=== PATIENT | female | born 1990 | race Caucasian/White ===

== ENCOUNTER 2017-12-26 19:49 | Emergency (ER) | payer OTHER ==
--- NOTE | 2017-12-26 20:07 | PDOC ---
Rapid Medical Evaluation Time Seen by Provider: 12/26/17 20:03 Medical Evaluation: Allergies Allergy/AdvReac Type Severity Reaction Status Date / Time kiwi Allergy Severe swelling Verified 04/29/16 06:33 of tongue No Known Drug Allergies Allergy Unknown Verified 04/29/16 06:33 coconut Allergy Severe n/v-itching Uncoded 04/29/16 06:33 12/26/17 20:04 I have performed a brief in-person person evaluation of the patient. The patient presents with a chief complaint of flu-like symptoms x 2 weeks, non with non productive coughing that causes chest, mid back coughing and headache. Took dayquil and using albuterol pump. Denies fever or chills. Pertinent physical exam findings: NAD Lungs clear bilaterally heart s1s2 I have ordered the following: urine hcg The patient will proceed to the ED for further evaluation.
[2017-12-26 20:10] VITALS: BP 134/83; PULSE 84; TEMP 98.4; BMI 16.9
--- NOTE | 2017-12-26 21:26 | PDOC ---
History of Present Illness - General Chief Complaint: Cold Symptoms Stated Complaint: COUGHING Time Seen by Provider: 12/26/17 20:03 History Source: Patient Exam Limitations: No Limitations - History of Present Illness Initial Comments: 12/26/17 21:24 Best Contact: Pmhx:Asthma Pshx:N/A Allergies:NKDA 27 year old female presents to the emergency department complaining of body ache , frontal headache, dehydration, nonproductive cough 9 days. Patient states all her symptoms have subsided except for the nonproductive cough. Patient denies fever, headache, nausea/vomiting/diarrhea, headache, dizziness, lightheadedness, facial pains, rhinorrhea, earache, sore throat, chest pains, abdominal discomfort, urinary symptoms. Patient denies hitting anyone or taking anything for her cough. Past History - Past Medical History Allergies/Adverse Reactions: Allergies Allergy/AdvReac Type Severity Reaction Status Date / Time kiwi Allergy Severe swelling Verified 12/26/17 20:05 of tongue No Known Drug Allergies Allergy Unknown Verified 12/26/17 20:05 coconut Allergy Severe n/v-itching Uncoded 04/29/16 06:33 Home Medications: Ambulatory Orders Albuterol Sulfate Inhaler - [Ventolin Hfa Inhaler -] 1 - 2 inh PO QID 04/29/16 Anemia: No Asthma: Yes Cancer: No Cardiac Disorders: No CVA: No COPD: No CHF: No Dementia: No Diabetes: No GI Disorders: No Disorders: No HTN: No Hypercholesterolemia: No Liver Disease: No Seizures: No Thyroid Disease: No - Surgical History Abdominal Surgery: No Appendectomy: No Cardiac Surgery: No Cholecystectomy: No Lung Surgery: No Neurologic Surgery: No Orthopedic Surgery: No - Suicide/Smoking/Psychosocial Hx Smoking Status: No Smoking History: Never smoked Have you smoked in the past 12 months: No Number of Cigarettes Smoked Daily: 0 Information on smoking cessation initiated: No Hx Alcohol Use: No Drug/Substance Use Hx: No Substance Use Type: None Hx Substance Use Treatment: No Review of Systems - Review of Systems Able to Perform ROS?: Yes Comments:: 12/26/17 21:23 CONSTITUTIONAL: Absent: fever, chills, diaphoresis, generalized weakness, malaise, loss of appetite HEENT: Absent: rhinorrhea, nasal congestion, throat pain, throat swelling, difficulty swallowing, mouth swelling, ear pain, eye pain, visual Changes CARDIOVASCULAR: Absent: chest pain, loss of consciousness, palpitations, irregular heart rate, peripheral edema RESPIRATORY: +cough Absent: shortness of breath, dyspnea with exertion, orthopnea, wheezing, stridor , hemoptysis GASTROINTESTINAL: Absent: abdominal pain, abdominal distension, nausea, vomiting, diarrhea, constipation, melena, hematochezia GENITOURINARY: Absent: dysuria, frequency, urgency, hesitancy, hematuria, flank pain, genital pain MUSCULOSKELETAL: Absent: myalgia, arthralgia, joint swelling SKIN: Absent: rash, itching, pallor Is the patient limited Ukrainian proficient: No *Physical Exam - Vital Signs Last Vital Signs Temp Pulse Resp BP Pulse Ox 98.4 F 84 18 134/83 98 12/26/17 20:06 12/26/17 20:06 12/26/17 20:06 12/26/17 20:06 12/26/17 20:06 - Physical Exam Comments: 12/26/17 21:23 GENERAL: Well developed, well nourished. Awake and alert. No acute distress. HEENT: Normocephalic, atraumatic. PERRLA, EOMI. No conjunctival pallor. Sclera are non- icteric. Moist mucous membranes. Oropharynx is clear. NECK: Supple. Full ROM. No JVD. Carotid pulses 2+ and symmetric, without bruits. No thyromegaly. No lymphadenopathy. CARDIOVASCULAR: Regular rate and rhythm. No murmurs, rubs, or gallops. Distal pulses are 2+ and symmetric. PULMONARY: No evidence of respiratory distress. Lungs clear to auscultation bilaterally. No wheezing, rales or rhonchi. ABDOMINAL: Soft. Non-tender. Non-distended. No rebound or guarding. No organomegaly. Normoactive bowel sounds. MUSCULOSKELETAL Normal range of motion at all joints. No bony deformities or tenderness. No CVA tenderness. EXTREMITIES: No cyanosis. No clubbing. No edema. No calf tenderness. SKIN: Warm and dry. Normal capillary refill. No rashes. No jaundice. NEUROLOGICAL: Alert, awake, appropriate. Cranial nerves 2-12 intact. No deficits to light touch and temperature in face, upper extremities and lower extremities. No motor deficits in the in face, upper extremities and lower extremities. Normoreflexic in the upper and lower extremities. Normal speech. Toes are down- going bilaterally. Gait is normal without ataxia. PSYCHIATRIC: Cooperative. Good eye contact. Appropriate mood and affect. ED Treatment Course - ADDITIONAL ORDERS Additional order review: Laboratory Results 12/26/17 20:42 Urine HCG, Qual Negative *DC/Admit/Observation/Transfer Diagnosis at time of Disposition: Acute bronchitis Qualifiers: Bronchitis organism: unspecified organism Qualified Code(s): J20.9 - Acute bronchitis, unspecified - Discharge Dispostion Disposition: HOME Condition at time of disposition: Stable Admit: No - Referrals Referrals: Zay Hernandez MD [Primary Care Provider] - - Patient Instructions Printed Discharge Instructions: DI for Acute Bronchitis Additional Instructions: Increase fluids Take [id number] supportive care such as Mucinex or Robitussin for your cough Follow-up with your PMD within 48 hours Take the antibiotics as prescribed/Z-Jeffery Return back to the emergency department for severe/persistent or worsening symptoms Your urine results today shows that you are not - Post Discharge Activity
== END 2017-12-26 21:30 | disposition home or self-care (01) ==
LOC: JERFT 19:49
DX: I20.9 Angina pectoris, unspecified (principal)
CPT/HCPCS: 84703; 99281-25

== ENCOUNTER 2019-06-20 02:31 | Emergency (ER) | payer OTHER ==
--- NOTE | 2019-06-20 02:42 | PDOC ---
History of Present Illness - General History Source: Patient Exam Limitations: No Limitations - History of Present Illness Initial Comments: Pt is a 28 yo F, with PMH of asthma, who is presenting with swelling to her R lower lip. Pt has a lip piercing and believes she might have rubbed it on the pillow while sleeping. She noticed swelling earlier this afternoon, but awoke from sleep with significant swelling of the lip, and could not remove the piercing herself. Pt has not noticed any drainage from the area. Pt denies any fevers/chills, headache, vision changes, difficulty swallowing, syncope, chest pain, palpitations, SOB, nausea/vomiting, abdominal pain, urinary symptoms, diarrhea/constipation, or leg swelling. Allergies: NKDA PCP: David Social: Pt denies any cigarette, alcohol, or drug use. Pt denies any recent travel or sick contacts. Surgical: no relevant history. Family: no relevant history. 06/20/19 03:43 <Latasha Calvillo - Last Filed: 06/20/19 03:43> <Masoud Wetzel - Last Filed: 06/20/19 04:01> - General Stated Complaint: SWELLING,LIP Time Seen by Provider: 06/20/19 02:42 Past History - Travel Traveled outside of the country in the last 30 days: No Close contact w/someone who was outside of country & ill: No - Past Medical History Anemia: No Asthma: Yes Cancer: No Cardiac Disorders: No CVA: No COPD: No CHF: No Dementia: No Diabetes: No GI Disorders: No Disorders: No HTN: No Hypercholesterolemia: No Liver Disease: No Seizures: No Thyroid Disease: No - Surgical History Abdominal Surgery: No Appendectomy: No Cardiac Surgery: No Cholecystectomy: No Lung Surgery: No Neurologic Surgery: No Orthopedic Surgery: No - Suicide/Smoking/Psychosocial Hx Smoking Status: No Smoking History: Never smoked Have you smoked in the past 12 months: No Number of Cigarettes Smoked Daily: 0 Hx Alcohol Use: No Drug/Substance Use Hx: No Substance Use Type: None Hx Substance Use Treatment: No <Latasha Calvillo - Last Filed: 06/20/19 03:43> <Masoud Wetzel - Last Filed: 06/20/19 04:01> - Past Medical History Allergies/Adverse Reactions: Allergies Allergy/AdvReac Type Severity Reaction Status Date / Time kiwi Allergy Severe swelling Verified 06/20/19 02:46 of tongue No Known Drug Allergies Allergy Unknown Verified 06/20/19 02:46 coconut Allergy Severe n/v-itching Uncoded 06/20/19 02:46 Home Medications: Ambulatory Orders Albuterol Sulfate Inhaler - [Ventolin Hfa Inhaler -] 1 - 2 inh PO QID 04/29/16 Azithromycin [Zithromax -] 250 mg PO UTDICT #6 tab 12/26/17 Clindamycin [Cleocin -] 450 mg PO TID 7 Days #32 capsule 06/20/19 Review of Systems - Review of Systems Able to Perform ROS?: Yes Is the patient limited Bruneian proficient: No Constitutional: Yes: Weight Stable. No: Chills, Diaphoresis, Fever, Loss of Appetite, Malaise HEENTM: Yes: See HPI, Mouth Pain, Mouth Swelling. No: Recent change in vision, Nose Congestion, Throat Pain, Throat Swelling, Dental Problems, Difficulty Swallowing Respiratory: No: Cough, Orthopnea, Shortness of Breath Cardiac (ROS): No: Chest Pain, Edema, Irregular Heart Rate, Lightheadedness, Palpitations, Syncope, Chest Tightness ABD/GI: No: Constipated, Diarrhea, Nausea, Poor Appetite, Poor Fluid Intake, Vomiting : No: Burning, Dysuria, Pain, Urgency Musculoskeletal: No: Muscle Pain, Muscle Weakness Integumentary: Yes: See HPI. No: Change in Color, Erythema, Rash Neurological: No: Numbness, Paresthesia, Tingling Psychiatric: No: Sleep Pattern Change, Change in Appetite Endocrine: No: Increased Urine, Change in Weight Hematologic/Lymphatic: No: Anemia, Blood Clots, Easy Bleeding, Easy Bruising <Latasha Calvillo - Last Filed: 06/20/19 03:43> *Physical Exam - Physical Exam Comments: Vitals stable, pt afebrile. Pt in NAD, thin body habitus. Pt alert and oriented x3. material distributor generally intact, muscular strength and sensation intact. No midline spinal tenderness, step-offs, or crepitus. Head normocephalic, atraumatic. Eyes PERRLA, EOMI. R side of lower lip with edema, purulent drainage from site of metal lip piercing. No surrounding induration or erythema. Oropharynx without erythema or exudates, no LAD b/l. Handling oral secretions without difficulty. No nasal congestion, hearing intact. Clear heart sounds, S1/S2, no JVD, b/l pedal edema, or heart murmur. Clear lung sounds, no respiratory distress, wheezes, crackles, or accessory muscle use. No abdominal or CVA tenderness to palpation, no rebound, no guarding. Abdomen soft, non-distended, and with normoactive bowel sounds. Skin without jaundice or rash. 06/20/19 03:45 <Latasha Calvillo - Last Filed: 06/20/19 03:43> - Vital Signs Last Vital Signs Temp Pulse Resp BP Pulse Ox 98.0 F 87 18 138/99 98 06/20/19 02:44 06/20/19 02:44 06/20/19 02:44 06/20/19 02:44 06/20/19 02:44 <Masoud Wetzel - Last Filed: 06/20/19 04:01> Procedures - Additional Procedures Additional Procedures: other (Submental block to R side of lower lip. Removed lip piercing with forceps and hemostats. No complications. Sensation intact to lower lip and teeth. ) <Latasha Calvillo - Last Filed: 06/20/19 03:43> ED Treatment Course - Medications Given in the ED: ED Medications Discontinued Medications Generic Name Dose Route Start Last Admin Trade Name Flo PRN Reason Stop Dose Admin Acetaminophen 650 mg 06/20/19 03:21 06/20/19 03:22 Tylenol - PO 06/20/19 03:22 650 mg ONCE ONE Administration Clindamycin HCl 450 mg 06/20/19 03:21 06/20/19 03:26 Cleocin - PO 06/20/19 03:22 450 mg ONCE ONE Administration <Masoud Wetzel - Last Filed: 06/20/19 04:01> Medical Decision Making - Medical Decision Making Pt was seen at bedside, also will be seen by attending Dr. Wetzel. Pt presenting with lower lip swelling 2/2 irritation of lip piercing. Removed piercing using hemostats and submental block (see procedure note). Purulent drainage from piercing site. Provided 650 mg PO tylenol and 450 mg PO clindamycin for improvement of pain and abx coverage. Bedside US showed no significant fluid collection for I&D Pt can be d/c with PCP or ER f/u. Sent clindamycin to pt pharmacy. Strict return precautions provided with pt understanding. 06/20/19 03:47 <Latasha Calvillo - Last Filed: 06/20/19 03:43> *DC/Admit/Observation/Transfer - Discharge Dispostion Decision to Admit order: No <Latasha Calvillo - Last Filed: 06/20/19 03:43> - Attestations Physician Attestion: 06/20/19 04:01 I have reviewed the plan as documented and agree with current plan as documented. Electronically co-signed by Masoud Wetzel MD <Masoud Wetzel - Last Filed: 06/20/19 04:01> Diagnosis at time of Disposition: Swollen lip, Body piercing - Discharge Dispostion Disposition: HOME Condition at time of disposition: Improved - Prescriptions Prescriptions: Clindamycin [Cleocin -] 450 mg PO TID 7 Days #32 capsule - Referrals Referrals: Zay Hernandez MD [Staff Physician] - - Patient Instructions Printed Discharge Instructions: DI for Skin Abscess Additional Instructions: You were seen in the ER today for swelling in your lip from a lip piercing. Please follow-up with your primary care doctor or return to the ER within a few days to discuss your visit and make sure your symptoms have improved. Please return to the ER if you have any worsening pain, difficulty swallowing, development of fevers or chills, loss of consciousness, inability to tolerate food or fluids, or any other concerns. I have sent medications to your pharmacy. Please take these medications as prescribed. You can take tylenol and motrin every 4-6 hours as needed for pain.
[2019-06-20 02:46] VITALS: BP 138/99; PULSE 87; TEMP 98; BMI 18.7
[2019-06-20] MEDS ORDERED: ACETAMINOPHEN 325 MG TABLET (FP) ONE (03:09)
[2019-06-20] MEDS ORDERED: ACETAMINOPHEN 325 MG TABLET (FP) PO ONE (03:21)
[2019-06-20] MEDS ORDERED: CLINDAMYCIN HCL 150 MG CAPSULE (FP) PO ONE (03:21)
[2019-06-20] MEDS ORDERED: CLINDAMYCIN HCL 150 MG CAPSULE (FP) ONE (03:23)
--- NOTE | 2019-06-20 03:29 | PDOC ---
Documentation entered by Elgin Cochran SCRIBE, acting as scribe for Masoud Wetzel MD. Masoud Wetzel MD: This documentation has been prepared by the Dimas mcgee Daniel, SCRIBE, under my direction and personally reviewed by me in its entirety. I confirm that the documentation accurately reflects all work, treatment, procedures, and medical decision making performed by me. Attending Attestation - Resident Resident Name: Latasha Calvillo - ED Attending Attestation I have performed the following: I have examined & evaluated the patient, The case was reviewed & discussed with the resident, I agree w/resident's findings & plan, Exceptions are as noted - HPI HPI: 06/20/19 03:10 The patient is a 28 year old female with a past medical history of asthma here today for evaluation of lip swelling. The patient reports that she woke up yesterday with some swelling of her right lower lip around her piercing which she has had for 4 years. She states that the swelling got worse after she took a nap. She denies any trauma to her lip. Patient denies fever, chills. Allergies: kiwi, coconut, NKDA - Physicial Exam PE: 06/20/19 03:22 Speaking in full sentences, tearful. Right lower lip edema and tenderness. Lip ring embedded in right aspect of lower lip with diffuse swelling and tenderness. Ring removed . Unable to express any purulence. No surrounding erythema. No drooling. BSUS shows no discrete collections. 06/20/19 03:26 - Medical Decision Making 06/20/19 03:27 Lip ring removed. Given no discrete collection on BSUS, I&D not indicated. Will d/c with rx clindamycin. Pt instructed to take picture of her lip at this time and to leave the lip ring out. Will return to ED in 48 hours for wound check, or sooner if she develops any respiratory distress or worsening of the swelling.
== END 2019-06-20 03:33 | disposition home or self-care (01) ==
LOC: JER 02:31
PROC: 0HC1XZZ Extirpation of Matter from Face Skin, External Approach (ICD-10-PCS; principal; 2019-06-20)
DX: S01.541A Puncture wound with foreign body of lip, initial encounter (principal); J45.909 Unspecified asthma, uncomplicated; X58.XXXA Exposure to other specified factors, initial encounter; Y93.89 Activity, other specified; Y92.89 Other specified places as the place of occurrence of the external cause
CPT/HCPCS: 76010-TC; 99281-25

== ENCOUNTER 2019-06-22 13:38 | Emergency (ER) | payer OTHER ==
[2019-06-22 14:12] VITALS: BP 123/96; PULSE 103; TEMP 97.2; BMI 17.7
--- NOTE | 2019-06-22 14:44 | PDOC ---
Suture Removal/Wound Check HPI - History of Present Illness Chief Complaint: Revisit,Wound Recheck Stated Complaint: REVISIT Time Seen by Provider: 06/22/19 14:26 History Source: Yes: Patient Exam Limitations: Yes: No Limitations [facility] Date of Last ED visit: 06/20/19 - Previous ED Treatment Type of procedure performed on last visit: Yes: Other (piercing removed from right lower lip) Antibiotics Prescribed: Yes (Clindamycin) Past History - Past Medical History Allergies/Adverse Reactions: Allergies Allergy/AdvReac Type Severity Reaction Status Date / Time kiwi Allergy Severe swelling Verified 06/22/19 14:14 of tongue No Known Drug Allergies Allergy Unknown Verified 06/22/19 14:14 coconut Allergy Severe n/v-itching Uncoded 06/22/19 14:14 Home Medications: Ambulatory Orders Albuterol Sulfate Inhaler - [Ventolin Hfa Inhaler -] 1 - 2 inh PO QID 04/29/16 Azithromycin [Zithromax -] 250 mg PO UTDICT #6 tab 12/26/17 Clindamycin [Cleocin -] 300 mg PO TID #21 capsule 06/20/19 Clindamycin [Cleocin -] 450 mg PO TID 7 Days #32 capsule 06/20/19 Anemia: No Asthma: Yes Cancer: No Cardiac Disorders: No CVA: No COPD: No CHF: No Dementia: No Diabetes: No GI Disorders: No Disorders: No HTN: No Hypercholesterolemia: No Liver Disease: No Seizures: No Thyroid Disease: No - Surgical History Abdominal Surgery: No Appendectomy: No Cardiac Surgery: No Cholecystectomy: No Lung Surgery: No Neurologic Surgery: No Orthopedic Surgery: No - Immunization History Immunization Up to Date: Yes - Suicide/Smoking/Psychosocial Hx Smoking Status: No Smoking History: Never smoked Have you smoked in the past 12 months: No Number of Cigarettes Smoked Daily: 0 Hx Alcohol Use: No Drug/Substance Use Hx: No Substance Use Type: None Hx Substance Use Treatment: No Suture Removal/Wound Check PE - Physical Exam Laceration/Wound Check Symptoms: reports: None Current Severity Level: None Maximum Severity Level: None Pain Localization: None Pain Radiation: None *Review of Systems - Review of Systems Able to Perform ROS?: Yes All Other Systems: Reviewed and Negative *Physical Exam - Vital Signs Last Vital Signs Temp Pulse Resp BP Pulse Ox 97.2 F L 103 H 17 123/96 99 06/22/19 14:08 06/22/19 14:08 06/22/19 14:08 06/22/19 14:08 06/22/19 14:08 - Physical Exam General Appearance: Yes: Appropriately Dressed. No: Apparent Distress HEENT: positive: Other (Right lower lip piercing site without erythema or drainage present. Swelling present to the buccal surface of the right lower lip. ) Medical Decision Making - Medical Decision Making 06/22/19 14:43 A/P: 28-year-old woman for wound check status post lip piercing removal 2 days ago Wound appears to be healing well without any signs of infection Discharge home to continue previously prescribed antibiotics Portions of this note have been documented using voice recognition software. As a result, errors may occur in the internet database specialist process. Effort has been made to correct all grammatical and internet database specialist error, but some may have been missed. *DC/Admit/Observation/Transfer Diagnosis at time of Disposition: Visit for wound check - Discharge Dispostion Disposition: HOME Condition at time of disposition: Stable Decision to Admit order: No - Referrals Referrals: Zay Hernandez MD [Primary Care Provider] - - Patient Instructions Additional Instructions: Continue antibiotics as previously prescribed. Return to the emergency department for any new or worsening symptoms. Thank you very much for choosing us to provide your emergent health care needs. - Post Discharge Activity
== END 2019-06-22 14:47 | disposition home or self-care (01) ==
LOC: JERFT 13:38
DX: Z48.01 Encounter for change or removal of surgical wound dressing (principal)
CPT/HCPCS: 99281-25